=== PATIENT | female | born 1935 | race Caucasian/White ===

== ENCOUNTER 2019-11-18 13:08 | Outpatient (CLI) | payer MEDICARE, OTHER, SELFPAY ==
--- NOTE | 2019-11-18 13:10 | DI.RAD.S_ITS ---
PROCEDURE: PAIN L INTERLAMINAR/CAUDAL INJ INDICATIONS: RADICULOPATHY FINDINGS: Fluoroscopic spot filming was performed to verify placement of spinal needles at the L4-L5 level(s), as labeled on the films. Appropriate location(s) of the needle tip(s) was confirmed by injection of iodinated contrast. Dictated by: Fernando Louie M.D. on 11/18/2019 at 16:09 Approved by: Fernando Louie M.D. on 11/18/2019 at 16:10
[2019-11-18 14:04] VITALS: BP 149/80; PULSE 82; RESP 151; TEMP 36.1; O2SAT 95
[2019-11-18 14:28] VITALS: BP 170/84; PULSE 92; RESP 16; O2SAT 97
[2019-11-18 14:33] VITALS: BP 156/89; PULSE 90; RESP 16; O2SAT 98
[2019-11-18] MEDS: IOPAMIDOL 15 ML VIAL 3 ML INJ (14:34)
[2019-11-18] MEDS: BUPIVACAINE 0.25% (PF) VIAL 2 ML INJ (14:34)
[2019-11-18] MEDS: DEXAMETHASONE 10 MG/ML VIAL 20 MG INJ (14:35)
[2019-11-18] MEDS: BETAMETHASONE 30 MG/5 ML MDV 6 MG INJ (14:35)
[2019-11-18 14:38] VITALS: BP 182/91; PULSE 93; RESP 16; O2SAT 100
--- NOTE | 2019-11-18 14:38 | PC.NURSE ---
ASSISTING PT OFF TABLE AND TRANSPORTING TO POST PROC AREA IN STABLE CONDITION. PASSING RN CARE OF PT TO JACKELYN GONZALEZ.
--- NOTE | 2019-11-18 14:41 | P.PCN_ITS ---
Procedures Date/Time Date of procedure: 11/18/19 Time of procedure: 14:41 General Procedure description: PREOP DIAGNOSIS 1. FORMAINAL STENOSIS WITH LE SYMPTOMS POST OP DIAGNOSIS 1. FORMAINAL STENOSIS WITH LE SYMPTOMS PROCEDURES 1. FLUOROSCOPICALLY GUIDED CONTRAST CONTROLLED TRANSFORAMINAL EPIDURAL STEROID INJECTION - RIGHT L4/5 TFESI PHYSICIAN: Bipin Stephens DO INDICATIONS: Judith is referred by for treatment of Foraminal Stenosis with Right LE Symptoms FINDINGS Foraminal Nerve Root Compression secondary to disc disease and facet hypertrophy DESCRIPTION OF PROCEDURE: Following review of allergy and review of potential side effects and complications, including, but not necessarily limited to, infection, allergic reaction, local tissue breakdown, stroke, temporary or permanent nerve injury, paralysis, and possible , the patient indicated that the patient understood and agreed to proceed. An informed consent document was signed by the patient, witnessed by a nurse, and placed in the patient's chart. Additionally, other treatment options including medications, modalities, and physical therapy were reviewed with the patient. After review of previous anaesthesic history and IV conscious sedation the patient was deemed safe to proceed with todays procedure with IV conscious sedation as ASA class II designation. Safety time-out was performed to confirm patient ID, procedure to be performed and site of procedure. IV sedation was deemed unnecessary and thus not administered by the RN after DO order, titrated to patient comfort during the course of the procedure while the patient remained responsive to all verbal commands In the prone position following sterile prep and drape of the lumbar region, the Right L4/5 posterior neuroforamen was identified fluoroscopically. The skin was anesthetized via a 25-gauge 1.5-inch needle with 1% lidocaine solution. At this point, a 25-gauge 3.5-inch spinal needle was atraumatically introduced and advanced under fluoroscopic guidance through the posterior Right L4/5 neuroforamen to approximately the anterior aspect of the canal. Depth was confirmed on lateral view. Following negative aspiration, injection of approximately 1.5 cc of Isovue 200 under live fluoroscopy in the AP view confirmed excellent flow along the nerve root, into the epidural space without vascular or intrathecal uptake observed Radiological data, including multiple fluoroscopic views of the lumbosacral spine, reveal a spinal needle at the right L4/5 posterior neuroforamen. Subsequent views show flow of contrast material flowing superiorly and inferiorly along the nerve root confirming epidural flow. Subsequently, a test dose of 1.5 cc of 1% lidocaine solution was administered and patient was observed for two minutes for signs or symptoms of complications, including abdominal pain, shortness of breath, bilateral upper or lower extremity weakness, nausea and vomiting, prior to steroid injection. At this point, a total of 3cc or 20mg of dexamethasone and 6mg of betamethasone was injected without incident. The procedure tolerated the procedure well without signs or symptoms of complications prior to transfer to the recovery area continued monitoring without incident.The patient was then transferred to the recovery area where they were observed for an appropriate time after the injection. The patient reported a VAS score of 7 prior to the procedure and a post- procedure VAS of 0. Total Fluoroscopy Time: 20.9 seconds Total Conscious Sedation Time: 24min POST OP INSTRUCTIONS The patient was provided a Pain Log to continue to record their response to the target-specific procedure prior to follow-up visit with their referring physician. Additionally, specific post-injection care instructions and a contact number to our office were provided if concerns arise regarding possible complications associated with the procedure are suspected. Bipin Stephens DO Complications: none
[2019-11-18 14:43] VITALS: BP 159/65; PULSE 82; RESP 16; O2SAT 98
[2019-11-18 14:55] VITALS: BP 150/87; PULSE 84; RESP 15; O2SAT 95
--- NOTE | 2019-11-18 15:11 | PC.NURSE ---
1452: pt returned to post proce room in stable condition. Able to transfer from wc to chair independently. Resumed monitoring from JACKELYN Ortiz
--- NOTE | 2019-11-18 15:41 | PC.NURSE ---
NO SEDATION MEDS GIVEN AT ANY TIME THROUGHOUT PROCEDURE.
== END 2019-11-18 15:13 | disposition home or self-care (01) ==
LOC: RAD 13:09
PROVIDERS: PCP Student in an Organized Health Care Education/Training Program; Referring Provider Physical Medicine & Rehabilitation; Visit Provider Physical Medicine & Rehabilitation
DX: M48.061 Spinal stenosis, lumbar region without neurogenic claudication (principal); M51.16 Intervertebral disc disorders with radiculopathy, lumbar region
CPT/HCPCS: 62323; 99152; J0702; J1100; J2250; J3010